=== PATIENT | female | born 1960 | race Caucasian/White ===

== ENCOUNTER → 2016-09-21 | Outpatient (CLI) | payer OTHER ==
[~2016-09-21] MED LIST: APAP500 MG PO; DELTASONE20 MG; FLEXERIL10 MG PO; IBUPROFEN800 MG PO; LORTAB 7.5-3251 EACH PO; MELOXICAM7.5 MG; OMEPRAZOLE40 M1 PO; PROZAC20 MG/5 ML PO; WELLBUTRIN100 MG PO
--- NOTE | ~2016-09-21 | EKG ---
PATIENT: OMAR VIVEROS UNIT #: [id number] Ventricular Rate: 65 BPM Atrial Rate: 65 BPM P-R Interval: 172 ms QRS Duration: 84 ms Q-T Interval: 418 ms QTC Calculation(Bezet): 434 ms P Arrey: 49 degrees Calculated R Arrey: 69 degrees Calculated T Arrey: 55 degrees Diagnosis Line: Normal sinus rhythm Diagnosis Line: Normal ECG Diagnosis Line: No previous ECGs available Diagnosis Line: Confirmed by KRISTAN BENÍTEZ MD ([id number]) on Diagnosis Line: 09/22/2016 10:55:32 AM INTERPRETING MD: KINJAL
--- NOTE | ~2016-09-21 | CR63 ---
[facility] A Service of [facility] & [facility] RADIOLOGY TEXT RESULTS PATIENT: OMAR VIVEROS LOCATION: [facility] : 58 UNIT #: [id number] AGE: [address]: Jose David Mcintyre MD SEX: F ORDER DR: [id number] [facility] [address]. [place], [place] [address] [id number] O MR#: [id number] Acc #: [id number] NAME: OMAR VIVEROS : 1960 SEX: F STUDY DATE/TIME: 09/21/2016 13:37 UNIT: [facility] ROOM: STUDY DESCRIPTION: CR Chest 2 View Attending Physician: Jose David Mcintyre M.D. Referring Physician: Jose David Mcintyre M.D. Ordering Physician: Jose David Mcintyre M.D. Primary Care Physician: Primary Care Physician No MEDICAL IMAGING REPORT This report is preliminary unless electronic signature is present EXAM Chest PA and lateral, 09/21/2016 HISTORY Preop diagnostic right knee arthroscopy. Smoking history. FINDINGS PA and lateral examination of the chest upright shows a good expansion of the parenchyma with a normal distribution of the pulmonary vascularity. There is no indication of congestion, effusion, infiltrate, tumor, or nodular density. The pleural reflections and diaphragmatic contours are normal. The cardiac silhouette and mediastinal anatomy is within normal limits. IMPRESSION Normal chest. Dictated by... Khurram Henry M.D. THIS IS AN ELECTRONICALLY VERIFIED REPORT Khurram Henry M.D. at 09/22/2016 8:20 AM ERICKA/[place] TD: 09/21/2016 21:37 JOB #: [id number] MEDICAL IMAGING REPORT Page 1 of 1 COPY
[2016-09-21 12:27] LABS: URINE APPEARANCE CLEAR; URINE BILIRUBIN NEG (NEG); URINE BLOOD NEG (NEG); URINE COLOR YELLOW; URINE GLUCOSE NEG (NEG); URINE KETONE NEG (NEG); URINE LEUKOCYTE ESTERASE NEG (NEG); URINE NITRATE NEG (NEG); URINE PROTEIN NEG (NEG); URINE SPECIFIC GRAVITY 1.012 (1.003-1.035); URINE UROBILINOGEN 0.2 MG/DL (NEG)
[2016-09-21 12:30] LABS: HEMATOCRIT 40.1 % (35.0-45.0); HEMOGLOBIN 13.2 gm/dL (12.0-16.0); MEAN CELL VOLUME 87.8 FL (83-96); MEAN CORPUSCULAR HEMOGLOBIN 28.9 PG (28-34); MEAN CORPUSCULAR HGB CONC 32.9 g/dL (30-36); MEAN PLATELET VOLUME 8.3 FL (6.5-11.5); RED BLOOD COUNT 4.57 X10e (3.90-5.30); RED CELL DISTRIBUTION WIDTH 13.7 % (11.0-15.5)
[2016-09-21 12:43] LABS: URINE SOURCE CLEAN CATCH
== END | disposition home or self-care (01) ==
LOC: CAMB 09-20 12:00
PROVIDERS: Orthopaedic Surgery
DX: Z01.818 Encounter for other preprocedural examination (principal); M65.861 Other synovitis and tenosynovitis, right lower leg; M17.11 Unilateral primary osteoarthritis, right knee
CPT/HCPCS: 36415; 71020; 81003; 85027; 93005

== ENCOUNTER → 2016-09-23 | Day surgery (SDC) | payer OTHER ==
--- NOTE | ~2016-09-23 | OR ---
Unit #: [id number] #: [id number] Patient: OMAR VIVEROS [id number] [place], [place] [address] [id number] O MR#: [id number] NAME: OMAR VIVEROS ROOM: Date of Procedure: 09/23/2016 Admission Date: 09/23/2016 Surgeon: Jose David Mcintyre M.D. : 1960 Attending Physician: Jose David Mcintyre M.D. Primary Care Physician: [facility] OPERATIVE REPORT PREOPERATIVE DIAGNOSES 1. Right knee lateral meniscal tear and medial meniscal tear. 2. Tricompartmental degenerative arthritis. 3. Florid synovitis generalized. 4. Medial synovial shelf. POSTOPERATIVE DIAGNOSES 1. Complex lateral meniscal tear. 2. Grade 3 and grade 4 degenerative arthritis, lateral compartment of the knee, both femoral and tibial component. 3. Grade 2 degenerative arthritis, medial compartment knee. 4. Synovitis medially. 5. Synovitis laterally. 6. Synovitis superior pouch in total. 7. Medial synovial shelf. 8. 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 PROCEDURES PERFORMED Right knee; 1. Medial meniscectomy. 2. Extensive debridement arthroplasty of the lateral femoral condyle and tibial plateau with power shaver on vacuum. 3. Debridement arthroplasty of medial femoral condyle and medial tibial plateau. 4. Synovectomy medially. 5. Synovectomy laterally. 6. Synovectomy essentially in entire superior pouch proximal patella including the medial and lateral gutters. 7. Excision of medial synovial shelf. 8. Joint lavage for large amount of debris. 9. Injection for postop hemostasis, analgesia, and inflammation with cortisone and 0.25% Marcaine with epinephrine. [employer]PER[employer] Gregory. ANESTHESIA General. TOURNIQUET/HEMOSTASIS 250 mmHg. Unit #: [id number] #: [id number] Patient: OMAR VIVEROS DESCRIPTION OF PROCEDURE Under satisfactory general anesthesia which had to be given like 3 times to get satisfactory relaxation. The patient tolerated this well and following this, the right leg was meticulously prepped and draped in a sterile technique followed by double gloving by the operative team. Following this, a standard three-portal entrance was utilized and knee was systematically inspected and get into lateral compartment. There was a complex tear going all the way from the anterior to the middle third posterior third junction. Power shaver was brought in on oscillate and vacuuming for excision, allowed the middle third going anteriorly with very thin and high risk for additional tears and this was turned back to more substantial border with both baskets and shaver. The meniscus was probed and placed with no additional instabilities or tears. Following initially entering the lateral compartment was noted at the articular surface of the tibia was down to grade 3 and grade 4 degenerative changes with fragmented, frayed articular surface hinging to break off, become a loose body and extensive debridement arthroplasty, especially the tibial plateau, but also some of on the femoral condyle was then done with a power shaver on oscillate. The patient then had synovium excised laterally with the Mitek bipolar Bovie for concomitant hemostasis and an area not for visualization, but for pathological condition and it corresponded well with the patient's maximum areas of preoperative clinical tenderness. Attention was then turned to the medial compartment and extensive probing of the meniscus especially in the posterior one-half was down with no instability. No tears underneath. Horizontal tears were elucidated. Femoral condyle medially had some grade 1 to 2+ degenerative changes and mechanical debridement arthroplasty of this area was likewise done. Then, again because of the inflammation and irritation with pathological status of the synovium medially at the joint line, which corresponded with the patient's maximum areas of preoperative clinical tenderness, extensive synovectomy and medial compartment of knee was then done. The scope was then placed superolaterally to the outflow portal and the synovium superiorly was just terrifically hot and angry, so significant amount of time and extensive synovectomy of superior pouch was then done with Mitek unit, with frequent vacuuming and lavage for the significant amount of pathological debris created by the surgical procedure. Following this, the medial synovial shelf was very thickened and fibrotic pathologic and would femoral condyle on range of motion, was excised using the Mitek unit again, extensive lavage and entire joint with vacuuming was then done. Trochlear surface was noted to have grade 1 degenerative change, no unstable surfaces. Joint was then lavaged one last time and had joint injected with 40 mL of 0.25% Marcaine, 1 mL of dexamethasone. The patient tolerated this well. Dictated by... Unit #: [id number] #: [id number] Patient: VIVEROSOMAR M.D. WEM/galilea TD: 09/24/2016 08:45 JOB #: [id number] OPERATIVE REPORT Page 1 of 1 X Jose David Mcintyre MD PROCEDURE OPERATIVE NOTE
== END | disposition home or self-care (01) ==
LOC: CSUR 08:47
DX: S83.271A Complex tear of lateral meniscus, current injury, right knee, initial encounter (principal); M17.11 Unilateral primary osteoarthritis, right knee; M65.9 Synovitis and tenosynovitis, unspecified; F17.210 Nicotine dependence, cigarettes, uncomplicated; F41.9 Anxiety disorder, unspecified; F32.9 Major depressive disorder, single episode, unspecified; Z90.49 Acquired absence of other specified parts of digestive tract; Z79.899 Other long term (current) drug therapy; Z79.1 Long term (current) use of non-steroidal anti-inflammatories (NSAID); Z79.891 Long term (current) use of opiate analgesic; Z98.51 Tubal ligation status; Z98.890 Other specified postprocedural states; X58.XXXA Exposure to other specified factors, initial encounter
CPT/HCPCS: J0690; J1100; J1170; J2250; J2405; J3010